=== PATIENT | male | born 1975 | race Caucasian/White ===

== ENCOUNTER 2018-08-18 21:11 | Emergency (ER) | payer OTHER ==
[~2018-08-18] VITALS: Ht 190.5 cm; Wt 83.0 kg
[2018-08-18] MEDS ORDERED: IBUPROFEN800 MG (22:13)
[2018-08-18] MEDS ORDERED: [UNRECOGNIZED DRUG - OTHER] (22:14)
[2018-08-19] MEDS ORDERED: GLIPIZIDE XL10 MG PO (06:00)
[2018-08-19] MEDS ORDERED: METFORMIN HCL500 M3 PO (06:00)
[2018-08-19] MEDS ORDERED: LEVAQUIN500 MG PO (06:17)
== END 2018-08-19 06:24 | disposition home or self-care (01) ==
LOC: ER 21:11
DX: E11.65 Type 2 diabetes mellitus with hyperglycemia (principal); B34.9 Viral infection, unspecified; R53.81 Other malaise; J11.1 Influenza due to unidentified influenza virus with other respiratory manifestations